=== PATIENT | male | born 1995 | race Caucasian/White ===

== ENCOUNTER 2022-01-14 05:07 | Emergency (ER) | payer SELFPAY ==
[2022-01-14 05:09] VITALS: BP 131/89; PULSE 75; RESP 16; TEMP 37; O2SAT 100
[2022-01-14] MEDS: SODIUM CHLORIDE 0.9% IV 1,000 ML 999 ML IV CONT (06:24)
[2022-01-14] MEDS: ONDANSETRON INJ 4 MG/2 ML VIAL IV PUSH (06:25)
[2022-01-14 06:27] VITALS: BP 111/82; PULSE 65; RESP 16; O2SAT 97
[2022-01-14 06:29] LABS: Basophils Absolute Auto 0.1 K/mm3 (0.0-0.1); Basophils Percent Auto 0.8 % (0.2-1.2); Eosinophils Absolute Auto 0.1 K/mm3 (0-0.3); Eosinophils Percent Auto 1.3 % (0-4.4); Hematocrit 44.8 % (42.0-52.0); Hemoglobin 15.4 g/dL (14.0-18.0); Immature Granulocyte Absolute 0.01 K/mm3 (0.00-0.031); Immature Granulocyte Percent A 0.2 % (0-0.5); Lymphocytes Absolute Auto 2.19 K/mm3 (0.9-3.2); Lymphocytes Percent Auto 34.7 % (18.3-44.2); Mean Corpuscular HGB Conc 34.4 g/dl (32-36); Mean Corpuscular Hemoglobin 30.1 pg (26-34); Mean Corpuscular Volume 87.5 fl (80-100); Mean Platelet Volume 9.4 fl (7.4-10.4); Monocytes Absolute Auto 0.6 K/mm3 (0.1-0.6); Monocytes Percent Auto 9.4 % (2.6-8.5); Neutrophils Absolute Auto 3.4 K/mm3 (1.3-6.7); Neutrophils Percent Auto 53.6 % (45.5-73.1); Platelet Count Result 269 k/mm3 (150-375); Red Blood Count 5.12 M/mm3 (4.6-6.20); Red Cell Distribution Width 12.1 % (11.5-14.5); White Blood Count 6.3 K/mm3 (4.5-10.0)
[2022-01-14 06:37] LABS: Alanine Aminotransferase 15 U/L (4-50); Albumin Level 4.5 g/dL (3.5-5.1); Alkaline Phosphatase 77 U/L (38-126); Anion Gap 11 mmol/L (8-16); Aspartate Amino Transferase 23 U/L (17-59); Bilirubin,Total 0.5 mg/dL (0.2-1.3); Blood Urea Nitrogen 14 mg/dL (9-20); Calcium 8.8 mg/dL (8.4-10.2); Carbon Dioxide 26 mmol/L (22-30); Chloride 103 mmol/L (98-107); Estimated CRCL calculation 121 ml/min; Estimated Glomerular Filt Rate > 60; Glucose 92 mg/dL (65-110); Lipase 157 U/L (23-300); Potassium 3.9 mmol/L (3.4-5.0); Sodium 140 mmol/L (137-145)
--- NOTE | 2022-01-14 07:19 | ED.GENADULT ---
HPI - General Adult General Chief complaint: Nausea/Vomiting/Diarrhea Stated complaint: vomiting blood Time Seen by Provider: 01/14/22 05:34 History of Present Illness HPI narrative: Patient is a 26-year-old male who presents ER with nausea and vomiting. Ongoing over the last 2 days. No specks of blood in his emesis. No dark black stools. No diarrhea. Mild epigastric discomfort without radiation, pain is worsened by drinking wine and smoking cigarettes. No known sick contacts. Denies fevers or chills or sweats. No dizziness with sitting to standing. No syncope. Related Data Allergies Allergy/AdvReac Type Severity Reaction Status Date / Time No Known Allergies Allergy Verified 01/14/22 05:44 Review of Systems Review of Systems: All systems reviewed & are unremarkable except as noted in HPI and below Constitutional: Constitutional: Denies chills, Denies fever(s) and Denies weakness ENT: Denies nasal congestion and Denies sore throat Cardiovascular: Cardiovascular: Denies chest pain, Denies rapid heart rate and Denies radiating jaw, neck or arm pain Respiratory: Respiratory: Denies cough and Denies dyspnea Gastrointestinal: Gastrointestinal: Reports abdominal pain, Denies diarrhea, Reports nausea and Reports vomiting PMFSH Past Medical History Medical History (Updated 01/14/22 @ 07:24 by Tien Matias MD) Healthy adult male Surgical History Surgical History (Updated 01/14/22 @ 07:22 by Tien Matias MD) No history of previous surgery Social History Social History (Updated 01/14/22 @ 07:22 by Tien Matias MD) Smoking status: Current every day smoker Exam Narrative: GENERAL: Well-appearing, well-nourished, and in no acute distress. HEAD: Normocephalic, atraumatic. ENT: Mucous membranes moist. CHEST: Clear to auscultation. No respiratory distress. HEART: Regular rate and rhythm. Normal peripheral pulses. ABDOMEN: Soft, nontender, nondistended, normal active bowel sounds. EXTREMITIES: Normal range of motion. No edema. SKIN: Warm, dry, no rash. NEURO: Alert and oriented x3. PSYCH: Normal mood and affect. Course Course Emergency Course: Patient resting comfortably. Informed results. Will treat for gastritis. Discharge home. Vital Signs Vital signs: Vital Signs Temperature 98.6 F 01/14/22 05:09 Pulse Rate 75 01/14/22 05:09 Respiratory Rate 16 01/14/22 05:09 Blood Pressure 131/89 01/14/22 05:09 Pulse Oximetry 100 01/14/22 05:09 Temperature 98.6 F 01/14/22 05:09 Pulse Rate 65 01/14/22 06:27 Respiratory Rate 16 01/14/22 06:27 Blood Pressure 111/82 01/14/22 06:27 Pulse Oximetry 97 01/14/22 06:27 Medical Decision Making Vital Signs Vital Signs: Vital Signs Temperature 98.6 F 01/14/22 05:09 Pulse Rate 75 01/14/22 05:09 Respiratory Rate 16 01/14/22 05:09 Blood Pressure 131/89 01/14/22 05:09 Pulse Oximetry 100 01/14/22 05:09 Temperature 98.6 F 01/14/22 05:09 Pulse Rate 65 01/14/22 06:27 Respiratory Rate 16 01/14/22 06:27 Blood Pressure 111/82 01/14/22 06:27 Pulse Oximetry 97 01/14/22 06:27 Lab Data Result diagrams: 01/14/22 06:14 01/14/22 06:15 Labs: Lab Results 01/14/22 01/14/22 Range/Units 06:14 06:15 WBC 6.3 (4.5-10.0) K/mm3 RBC 5.12 (4.6-6.20) M/mm3 Hgb 15.4 (14.0-18.0) g/dL Hct 44.8 (42.0-52.0) % MCV 87.5 (80-100) fl MCH 30.1 (26-34) pg MCHC 34.4 (32-36) g/dl RDW 12.1 (11.5-14.5) % Plt Count 269 (150-375) k/mm3 MPV 9.4 (7.4-10.4) fl Immature Gran % (Auto) 0.2 (0-0.5) % Neut % (Auto) 53.6 (45.5-73.1) % Lymph % (Auto) 34.7 (18.3-44.2) % [place] % (Auto) 9.4 H (2.6-8.5) % Eos % (Auto) 1.3 (0-4.4) % Baso % (Auto) 0.8 (0.2-1.2) % Lymph # (Auto) 2.19 (0.9-3.2) K/mm3 [place] # (Auto) 0.6 (0.1-0.6) K/mm3 Eos # (Auto) 0.1 (0-0.3) K/mm3 Baso # (Auto) 0.1 (0.0-0.1) K/mm3 Abs Immat G
[2022-01-14 07:20] VITALS: BP 111/83; O2SAT 98
--- NOTE | 2022-01-14 07:20 | PC.NURSE ---
Patient report received from Cecilio FIELDS. All questions answered and care of patient assumed.
[2022-01-14 07:51] VITALS: BP 104/81; PULSE 71; RESP 18; O2SAT 99
== END 2022-01-14 07:54 | disposition home or self-care (01) ==
PROVIDERS: Emergency Provider Emergency Medicine
DX: K29.70 Gastritis, unspecified, without bleeding (principal); F17.200 Nicotine dependence, unspecified, uncomplicated
CPT/HCPCS: 36415; 80053; 83690; 85025; 96361; 96374; 99284; J2405; J7030

== ENCOUNTER 2022-03-03 15:55 | Emergency (ER) | payer SELFPAY ==
--- NOTE | 2022-03-03 16:01 | ED.URI ---
HPI - URI/Sore Throat General Chief Complaint: Upper Respiratory Infection Stated Complaint: SORE THROAT/FEVER Time Seen by Provider: 03/03/22 16:01 Source: patient and RN notes reviewed Mode of arrival: ambulatory Limitations: no limitations History of Present Illness HPI Narrative: 26-year-old male presented for complaint of sore throat. Also endorses fever and headache yesterday. He denies nausea, vomiting, diarrhea, cough or shortness of breath. He has not taken anything for symptoms. He is not vaccinated for flu, not boosted for COVID. Denies sick contacts. MD elicited complaint: cough Related Data Allergies Allergy/AdvReac Type Severity Reaction Status Date / Time No Known Allergies Allergy Verified 03/03/22 16:04 Review of Systems Review of Systems: CONSTITUTIONAL: Denies malaise EYES: Denies visual changes, redness, or discharge ENT: Reports rhinorrhea, sore throat CARDIOVASCULAR: Denies chest pain, palpitations, edema RESPIRATORY: Denies dyspnea GASTROINTESTINAL: Denies abdominal pain, nausea, vomiting, diarrhea SKIN: Denies rash or itching MUSCULOSKELETAL: Denies myalgia NEUROLOGIC: Denies headache PMFSH Past Medical History Medical History Healthy adult male Surgical History Surgical History No history of previous surgery Social History Social History Smoking status: Current every day smoker Exam Narrative: GENERAL: Well-appearing HEAD: Normocephalic EYES: conjunctivae clear ENT: Mucous membranes moist. TM pearly vila with normal light reflex bilaterally; no tragal tenderness. Oropharynx erythematous without lesions or exudate, tongue is pale in color with approx 3mm circular area at distal aspect, he states he burned it on cough yesterday. No drooling, no hoarseness, no trismus, uvula midline. No tripod positioning, muffled voice, soft palate or pharyngeal wall bulging NECK: Supple. No lymphadenopathy CHEST: Clear to auscultation, breath sounds equal. No wheezing, rhonchi, rales, or stridor. No respiratory distress, speaks in full sentences. HEART: Regular rate and rhythm. No murmur heard. SKIN: Warm, dry, no rash. NEURO: Alert and oriented x3. PSYCH: Normal mood and affect Course Course Emergency Course: Patient is aware of diagnosis, understands and agrees to treatment plan. Anticipatory guidance given. Patient agrees to follow-up as directed and is aware of reasons to seek care at the emergency department. Portions of this record may have been created with voice recognition software Level of Care: Express Care Visit Vital Signs Vital signs: Vital Signs Temperature 97.5 F L 03/03/22 16:07 Pulse Rate 76 03/03/22 16:07 Respiratory Rate 16 03/03/22 16:07 Blood Pressure 114/73 03/03/22 16:07 Pulse Oximetry 99 03/03/22 16:07 Temperature 97.5 F L 03/03/22 16:07 Pulse Rate 76 03/03/22 16:07 Respiratory Rate 16 03/03/22 16:07 Blood Pressure 114/73 03/03/22 16:07 Pulse Oximetry 99 03/03/22 16:07 reviewed MDM - URI/Sore Throat MDM Narrative Medical decision making narrative: strep and COVID neg. He is advised on supportive treatment. He is appropriate for outpatient treatment and follow-up. Differential Diagnosis Differential diagnosis: Likely upper respiratory infection, sinusitis and viral infection Lab Data Attestation: I reviewed the patient's lab results. Labs: Lab Results 03/03/22 Range/Units 16:01 POC SARS CoV-2 Ag Negative (Negative) Strep Screen Presumptive Negative *(Reference Range: Negative)* Discharge Plan Discharge Clinical Impression: Pharyngitis Qualifiers: Pharyngitis/tonsillitis etiology: unspecified etiology Qualified Code(s): J02.9 - Acute pharyngitis, unspecified Patient Disposi
[2022-03-03 16:07] VITALS: BP 114/73; PULSE 76; RESP 16; TEMP 36.4; O2SAT 99
== END 2022-03-03 16:40 | disposition home or self-care (01) ==
PROVIDERS: Emergency Provider Nurse Practitioner Family
DX: J02.9 Acute pharyngitis, unspecified (principal); Z20.822 Contact with and (suspected) exposure to COVID-19
CPT/HCPCS: 87081; 87426; 87880; 99213; C9803; G0463

== ENCOUNTER 2022-04-03 18:13 | Emergency (ER) | payer SELFPAY ==
--- NOTE | 2022-04-03 18:14 | ED.URI ---
HPI - URI/Sore Throat General Chief Complaint: Dizziness Stated Complaint: heat injury Time Seen by Provider: 04/03/22 18:14 Source: patient Mode of arrival: ambulatory Limitations: no limitations History of Present Illness HPI Narrative: Mr. Lund is a 26-year-old male patient presenting to the clinic today with complaints of possible heat exhaustion. 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 He felt like he got overheated. States that he was sweating a lot, body aches, stomach cramping, having nausea, dizziness, and decreased urination. He has been in bed most of the day. He has only voided a total of 3-4 times in the last 24 hours. He states that some of the dizziness and nausea has improved since sleeping however he does not feel 100% currently. He denies any fever or chills. He denies any known exposure to anybody with COVID, flu, or strep. Related Data Allergies Allergy/AdvReac Type Severity Reaction Status Date / Time No Known Allergies Allergy Verified 04/03/22 18:23 Review of Systems Review of Systems: Pertinent positives per HPI. Patient denies any fever, chills, rash, headache, visual changes, cough, runny nose, sore throat, shortness of breath, chest pain, palpitations, vomiting, diarrhea, constipation, abdominal pain, or any urinary issues. PMFSH Past Medical History Medical History Healthy adult male Surgical History Surgical History No history of previous surgery Social History Social History Smoking status: Current every day smoker Comments At the time of my signature, I reviewed and agree with the nursing past medical, surgical, social, and family history. There is no relevant family history pertinent to the patient complaint. Exam Narrative: General: Well-developed, well nourished, in no apparent distress Head: Normocephalic, atraumatic Eyes: Pupils equally round and reactive to light bilaterally, EOM intact, sclera and conjunctive clear, no discharge, lids normal Ears: TMs intact and clear, ear canals clear, no drainage, grossly hearing normal. Nose: Nares patent, no discharge, no inflammation, no sinus tenderness. Mouth: Oropharynx without lesions or masses, good dentition, MMM. Neck: Supple, trachea midline, no enlargement of anterior or posterior cervical nodes, no thyroid masses or goiter palpable. Cardio: Regular rate and rhythm, s1 and s2 normal, no murmur appreciated. Resp: Clear to auscultation bilaterally anteriorly and posteriorly, no rhonchi, rales, wheezing or rubs Abdomen: Soft, pliable, generalized tenderness to palpation, no CVAT tenderness, no organomegaly, bowel sounds present all 4 quadrants Course Course Emergency Course: Portions of this record may have been created with voice recognition software. Level of Care: Express Care Visit Vital Signs Vital signs: Vital signs reviewed MDM - URI/Sore Throat MDM Narrative Medical decision making narrative: At the time of visit patient is resting comfortably on exam table. UA shows 1+ ketones however specific gravity is 1.025 and there is no protein in his urine. Not suspicious of rhabdomyolysis. He reports that his symptoms are improving however he still has some dizzy days and nausea at this time and has been trying to rehydrate. I suspect that the patient has heat exhaustion that is causing his dizziness and nausea. His vital signs are all within normal limits in the clinic today. I will give him a prescription for some Zofran and give him 2 days off and explained the importance of rehydration during working and also while at home. Supportive measures were discussed with the patient he voi
[2022-04-03 18:18] VITALS: BP 127/79; PULSE 87; RESP 18; TEMP 37.2; O2SAT 100
== END 2022-04-03 18:42 | disposition home or self-care (01) ==
LOC: EXPGLEN 18:16
PROVIDERS: Emergency Provider Nurse Practitioner Family
DX: R11.0 Nausea (principal); E86.0 Dehydration; T67.5XXA Heat exhaustion, unspecified, initial encounter; F17.200 Nicotine dependence, unspecified, uncomplicated
CPT/HCPCS: 81003; 99213; G0463

== ENCOUNTER 2023-12-22 22:31 | Emergency (ER) | payer SELFPAY ==
[2023-12-22 22:33] VITALS: BP 129/83; PULSE 81; RESP 16; TEMP 36.5; O2SAT 100
[2023-12-22 22:52] LABS: Basophils Percent Auto 0.5 % (0.2-1.2); Eosinophils Absolute Auto 0.1 K/mm3 (0-0.3); Eosinophils Percent Auto 0.7 % (0-4.4); Hematocrit 46.6 % (42.0-52.0); Hemoglobin 16.4 g/dL (14.0-18.0); Immature Granulocyte Absolute 0.01 K/mm3 (0.00-0.031); Immature Granulocyte Percent A 0.1 % (0-0.5); Lymphocytes Absolute Auto 2.62 K/mm3 (0.9-3.2); Lymphocytes Percent Auto 32.1 % (18.3-44.2); Mean Corpuscular HGB Conc 35.2 g/dl (32-36); Mean Corpuscular Hemoglobin 29.5 pg (26-34); Mean Platelet Volume 8.8 fl (7.4-10.4); Monocytes Absolute Auto 0.6 K/mm3 (0.1-0.6); Neutrophils Absolute Auto 4.9 K/mm3 (1.3-6.7); Neutrophils Percent Auto 59.6 % (45.5-73.1); Platelet Count Result 294 k/mm3 (150-375); Red Blood Count 5.55 M/mm3 (4.6-6.20); Red Cell Distribution Width 12.3 % (11.5-14.5); White Blood Count 8.2 K/mm3 (4.5-10.0)
[2023-12-22 23:02] LABS: Alanine Aminotransferase 70 U/L (6-50); Albumin Level 4.6 g/dL (3.5-5.1); Alkaline Phosphatase 85 U/L (38-126); Anion Gap 7 mmol/L (8-16); Aspartate Amino Transferase 75 U/L (17-59); Bilirubin,Total 0.5 mg/dL (0.2-1.3); Blood Urea Nitrogen 9 mg/dL (9-20); Calcium 9.4 mg/dL (8.4-10.2); Carbon Dioxide 27 mmol/L (22-30); Chloride 103 mmol/L (98-107); Estimated CRCL calculation 105 ml/min; Estimated Glomerular Filt Rate > 60; Glucose 92 mg/dL (65-110); Lipase 116 U/L (23-300); Potassium 4.3 mmol/L (3.4-5.0); Sodium 137 mmol/L (137-145)
[2023-12-22 23:08] LABS: Add Urine Microscopic? NO; Appearance Urine Clear (Clear); Bilirubin Urine Negative (Negative); Blood Urine Negative (Negative); Color Urine Yellow (Yellow); Glucose Urine UA Negative (Negative); Ketones Urine Negative (Negative); Leukocyte Esterase Ur Negative LEU/UL (Negative); Nitrate Urine Negative (Negative); Protein Urine Negative (Negative); Urobilinogen Urine 0.2 mg/dL (<2.0)
--- NOTE | 2023-12-22 23:17 | ED.GENADULT ---
HPI - General Adult General Chief complaint: Nausea/Vomiting/Diarrhea Stated complaint: nausea, vomiting Time Seen by Provider: 12/22/23 22:56 History of Present Illness HPI narrative: This is a 28 year old male presenting w/ 3 days of NVD. No URI symptoms chest pain breathing. He does have some crampy lower left abdominal pain. He has not taken anything for symptoms. He needs a work note to go back to work. Related Data Allergies Allergy/AdvReac Type Severity Reaction Status Date / Time No Known Allergies Allergy Verified 12/22/23 22:31 [facility] Past Medical History Medical History Healthy adult male Surgical History Surgical History No history of previous surgery Social History Social History Smoking status: Current every day smoker Exam Narrative: APPEARANCE: No apparent distress. Head: atraumatic. EYES: EOMI, NOSE: Atraumatic NECK: Trachea midline RESPIRATORY: No increased rate of breathing, CTAB CARDIOVASCULAR: RRR, ABDOMINAL: abdomen soft nontender no guarding rebound MUSCULOSKELETAl: No obvious deformities NEURO: Alert. Moving 4/4 extremities SKIN:: Warm, dry. Normal color PSYCHIATRIC: Normal affect Course Vital Signs Vital signs: Vital Signs Temperature 97.7 F 12/22/23 22:33 Pulse Rate 81 12/22/23 22:33 Respiratory Rate 16 12/22/23 22:33 Blood Pressure 129/83 12/22/23 22:33 Pulse Oximetry 100 12/22/23 22:33 Oxygen Delivery Room Air 12/22/23 22:33 Temperature 97.7 F 12/22/23 22:33 Pulse Rate 81 12/22/23 22:33 Respiratory Rate 16 12/22/23 22:33 Blood Pressure 129/83 12/22/23 22:33 Pulse Oximetry 100 12/22/23 22:33 Oxygen Delivery Room Air 12/22/23 22:33 Medical Decision Making MDM Narrative Medical decision making narrative: -Course: 28-year-old male presenting 3 days of GI symptoms. Laboratory studies normal. Vital signs stable. Patient discharged with the requested work note and symptomatic treatment. Given return precautions. -DDX includes but is not limited to: Gastroenteritis, viral illness -Independent interpretation of studies: CBC normal metabolic panel normal, UA normal -Shared decision making / Disposition: discharge -RX Imodium Zofran Vital Signs Vital Signs: Vital Signs Temperature 97.7 F 12/22/23 22:33 Pulse Rate 81 12/22/23 22:33 Respiratory Rate 16 12/22/23 22:33 Blood Pressure 129/83 12/22/23 22:33 Pulse Oximetry 100 12/22/23 22:33 Oxygen Delivery Room Air 12/22/23 22:33 Temperature 97.7 F 12/22/23 22:33 Pulse Rate 81 12/22/23 22:33 Respiratory Rate 16 12/22/23 22:33 Blood Pressure 129/83 12/22/23 22:33 Pulse Oximetry 100 12/22/23 22:33 Oxygen Delivery Room Air 12/22/23 22:33 Lab Data 12/22/23 22:45 12/22/23 22:45 Labs: Lab Results 12/22/23 12/22/23 Range/Units 22:45 22:59 WBC 8.2 (4.5-10.0) K/mm3 RBC 5.55 (4.6-6.20) M/mm3 Hgb 16.4 (14.0-18.0) g/dL Hct 46.6 (42.0-52.0) % MCV 84.0 (80-100) fl MCH 29.5 (26-34) pg MCHC 35.2 (32-36) g/dl RDW 12.3 (11.5-14.5) % Plt Count 294 (150-375) k/mm3 MPV 8.8 (7.4-10.4) fl Immature Gran % (Auto) 0.1 (0-0.5) % Neut % (Auto) 59.6 (45.5-73.1) % Lymph % (Auto) 32.1 (18.3-44.2) % [place] % (Auto) 7.0 (2.6-8.5) % Eos % (Auto) 0.7 (0-4.4) % Baso % (Auto) 0.5 (0.2-1.2) % Lymph # (Auto) 2.62 (0.9-3.2) K/mm3 [place] # (Auto) 0.6 (0.1-0.6) K/mm3 Eos # (Auto) 0.1 (0-0.3) K/mm3 Baso # (Auto) 0.0 (0.0-0.1) K/mm3 Abs Immat Gran (auto) 0.01 (0.00-0.031) K/mm3 Absolute Neuts (auto) 4.9 (1.3-6.7) K/mm3 Absolute Nucleated RBC 0.0 (0.0-0.012) K/mm3 Nucleated RBC % 0.0 (0.0-0.2) % Sodium 137 (137-145) mmol/L Potassium 4.3 (3.4-5.0) mmol/L
[2023-12-22 23:43] LABS: Influenza A QL RT-PCR Negative (Negative); Influenza B QL RT-PCR Negative (Negative); RSV RNA, RT-PCR Negative (Negative); SARS-CoV-2 RNA PCR Negative (Negative)
== END 2023-12-22 23:56 | disposition home or self-care (01) ==
PROVIDERS: Emergency Provider Emergency Medicine
DX: K52.9 Noninfective gastroenteritis and colitis, unspecified (principal); F17.200 Nicotine dependence, unspecified, uncomplicated; Z20.822 Contact with and (suspected) exposure to COVID-19
CPT/HCPCS: 36415; 80053; 81003; 83690; 85025; 87637; 99283

== ENCOUNTER 2024-04-04 16:55 | Emergency (ER) | payer SELFPAY ==
--- NOTE | ~2024-04-04 | CT_ITS ---
CT abdomen pelvis w con Ordering provider: Lisa Jeff PA-C History: . LLQ abd pain, flank pain . Comparison: None. Technique: CT abdomen with IV and without oral contrast. Radiation reduction technique utilized. DLP is 322.39. 100 mL Omnipaque 350 was given IV. Findings: VISUALIZED LOWER CHEST: Dependent atelectatic changes. UPPER ABDOMINAL ORGANS: Liver: Normal. Gallbladder: Normal. Spleen: Normal. Stomach/duodenum: Normal. Pancreas: Normal. Adrenals: Normal. Kidneys: Left 2 stones with the largest measures 4.1 mm stone. No hydronephrotic changes. Urinary bladder: Slightly thickened wall. VISUALIZED BOWEL AND MESENTERY: No evidence of diverticulitis. Normal appendix. The bowel is otherwis e normal. No free air or free fluid. No mesenteric lymphadenopathy. RETROPERITONEUM: Normal aorta. No retroperitoneal lymphadenopathy. MUSCULOSKELETAL: The superficial soft tissues are normal. Normal spine. IMPRESSION: No evidence of appendicitis, diverticulitis or intestinal obstruction. Stones in the left kidney. No hydronephrotic changes. Reviewed, dictated and finalized at location A.
[2024-04-04 17:19] VITALS: BP 120/87; PULSE 80; RESP 16; TEMP 36.4; O2SAT 100
--- NOTE | 2024-04-04 17:31 | ED.NAVMDI ---
HPI - Nausea/Vomiting/Diarrhea General Chief complaint: Nausea/Vomiting/Diarrhea <Jeferson Laureano PA-C - Last Filed: 04/04/24 17:37> Stated complaint: Nauseated, diarrhea, dizziness <Jeferson Laureano PA-C - Last Filed: 04/04/24 17:37> Time Seen by Provider: 04/04/24 17:31 <Jeferson Laureano PA-C - Last Filed: 04/04/24 17:37> Focused HPI: This is a 28-year-old male who presents to the ED for chief complaint of fatigue and diarrhea for the past couple of days. He is concerned for possible dehydration and heat exhaustion. He has been running around outside doing errands last couple of days. States he has had more than 5 episodes of diarrhea. Endorses 2 episodes of vomiting. Denies any known sick contacts. Endorses mild abdominal cramping. Denies fevers, chills, GI bleeding, urinary symptoms, chest pain, shortness of breath, cough. Denies illness or syncope GENERAL: Well-appearing, well-nourished, and in no acute distress. HEAD: Normocephalic, atraumatic. CHEST: Clear to auscultation. No respiratory distress. HEART: Regular rate and rhythm. NEURO: Alert and oriented x3. Patient screened in triage and initial orders placed. Additional care and disposition to be based upon diagnostic testing and treatment. <Jeferson Laureano PA-C - Last Filed: 04/04/24 17:37> Source: patient <Jeferson Laureano PA-C - Last Filed: 04/04/24 17:37> Mode of arrival: ambulatory <Jeferson Laureano PA-C - Last Filed: 04/04/24 17:37> Limitations: no limitations <LUIS Zepeda Last Filed: 04/04/24 17:37> History of Present Illness HPI Narrative: 28-year-old male presents to emergency department with concerns for dehydration and heat exhaustion. Patient states 3 days ago he was running errands without air conditioning in his car and since then has developed symptoms of dehydration. He is reporting a few episodes of orange and green diarrhea. States 3 nights ago he had an episode of nausea vomiting that has since resolved. He is reporting some lower abdominal pain and back pain. States he a history of a kidney stone. Denies dysuria or hematuria. States he felt warm a couple days ago but that has since resolved. Denies known fever. Requesting a doctor's note. <Lisa Jeff PA-C - Last Filed: 04/04/24 19:19> Related Data Allergies/Adverse reactions: Allergies Allergy/AdvReac Type Severity Reaction Status Date / Time No Known Allergies Allergy Verified 04/04/24 17:56 <Jeferson Laureano PA-C - Last Filed: 04/04/24 17:37> Review of Systems Review of Systems: CONSTITUTIONAL: Denies fever, chills, or sweats. EYES: Denies visual changes, redness, or discharge. ENT: Denies rhinorrhea, congestion, sore throat, or otalgia. CARDIOVASCULAR: Denies chest pain, palpitations, or edema. RESPIRATORY: Denies cough or dyspnea. GASTROINTESTINAL: See HPI GENITOURINARY: see HPI SKIN: Denies rash or itching. MUSCULOSKELETAL: Denies back pain, joint pain, or myalgia. NEUROLOGIC: Denies headache, numbness, or weakness. PSYCHIATRIC: Denies anxiety or depression. <Lisa Jeff PA-C - Last Filed: 04/04/24 19:19> PMFSH Past Medical History Medical History: Medical History Healthy adult male <Jeferson Laureano PA-C - Last Filed: 04/04/24 17:37> Surgical History Surgical History: Surgical History No history of previous surgery <Jeferson Laureano PA-C - Last Filed: 04/04/24 17:37> Social History Social History: Social History Smoking status: Current every day smoker <Jeferson Laureano PA-C - Last Filed: 04/04/24 17:37> Exam Narrative: GENERAL: Well-appearing, well-nourished, and in no acute distress. HEAD: Normocephalic, atraumatic. EYES: PERRLA and EOMI. ENT: Nares clear, no rhinorrhea or epistaxis. Mucous
[2024-04-04 17:44] LABS: Basophils Percent Auto 0.7 % (0.2-1.2); Eosinophils Absolute Auto 0.1 K/mm3 (0-0.3); Eosinophils Percent Auto 1.3 % (0-4.4); Hematocrit 45.7 % (42.0-52.0); Hemoglobin 15.9 g/dL (14.0-18.0); Immature Granulocyte Absolute 0.01 K/mm3 (0.00-0.031); Immature Granulocyte Percent A 0.2 % (0-0.5); Lymphocytes Absolute Auto 1.86 K/mm3 (0.9-3.2); Lymphocytes Percent Auto 34.4 % (18.3-44.2); Mean Corpuscular HGB Conc 34.8 g/dl (32-36); Mean Corpuscular Hemoglobin 29.6 pg (26-34); Mean Corpuscular Volume 84.9 fl (80-100); Monocytes Absolute Auto 0.3 K/mm3 (0.1-0.6); Monocytes Percent Auto 6.3 % (2.6-8.5); Neutrophils Absolute Auto 3.1 K/mm3 (1.3-6.7); Neutrophils Percent Auto 57.1 % (45.5-73.1); Platelet Count Result 243 k/mm3 (150-375); Red Blood Count 5.38 M/mm3 (4.6-6.20); Red Cell Distribution Width 12.4 % (11.5-14.5); White Blood Count 5.4 K/mm3 (4.5-10.0)
[2024-04-04 17:54] LABS: Alanine Aminotransferase 43 U/L (6-50); Albumin Level 4.6 g/dL (3.5-5.1); Alkaline Phosphatase 76 U/L (38-126); Anion Gap 12 mmol/L (4-12); Aspartate Amino Transferase 34 U/L (17-59); Bilirubin,Total 0.7 mg/dL (0.2-1.3); Blood Urea Nitrogen 10 mg/dL (9-20); Carbon Dioxide 23 mmol/L (22-30); Chloride 103 mmol/L (98-107); Estimated CRCL calculation 105 ml/min; Estimated Glomerular Filt Rate > 60; Glucose 161 mg/dL (65-110); Lipase 128 U/L (23-300); Potassium 3.9 mmol/L (3.4-5.0); Sodium 138 mmol/L (137-145)
[2024-04-04 17:58] LABS: Appearance Urine Clear (Clear); Bilirubin Urine Negative (Negative); Blood Urine Negative (Negative); Color Urine Yellow (Yellow); Glucose Urine UA Negative (Negative); Ketones Urine Negative (Negative); Leukocyte Esterase Ur Negative LEU/UL (Negative); Nitrate Urine Negative (Negative); Protein Urine Negative (Negative); pH Urine 6.5 (5.0-9.0)
[2024-04-04 18:00] LABS: Add Urine Microscopic? NO
[2024-04-04] MEDS: SODIUM CHLORIDE 0.9% IV 1,000 ML 999 ML IV CONT (18:41)
== END 2024-04-04 19:44 | disposition home or self-care (01) ==
PROVIDERS: Physician Assistant; Emergency Provider Physician Assistant
DX: K52.9 Noninfective gastroenteritis and colitis, unspecified (principal)
CPT/HCPCS: 36415; 74177; 80048; 80076; 81003; 83690; 85025; 96360; 99284; J7030; Q9967

== ENCOUNTER 2024-05-21 16:44 | Emergency (ER) | payer SELFPAY ==
--- NOTE | ~2024-05-21 | XR_ITS ---
XR chest 2V Ordering provider: Héctor Bradley MD History: 28 years Male with . uri . Comparison: December 16, 2012 FINDINGS: MEDIASTINUM: The cardiac silhouette is not enlarged. LUNGS: No infiltrates, effusions or pneumothorax. OTHER: No free air under the diaphragm. IMPRESSION: No acute cardiopulmonary pathology. Reviewed, dictated and finalized at location A.
[2024-05-21 16:59] VITALS: BP 127/77; PULSE 82; RESP 18; TEMP 36.7; O2SAT 99
[2024-05-21 19:15] LABS: Influenza A QL RT-PCR Negative (Negative); Influenza B QL RT-PCR Negative (Negative); RSV RNA, RT-PCR Negative (Negative); SARS-CoV-2 RNA PCR Negative (Negative)
--- NOTE | 2024-05-21 19:44 | ED.GENADULT ---
HPI - General Adult General Chief complaint: Upper Respiratory Infection Stated complaint: body aches, nausea Time Seen by Provider: 05/21/24 19:38 History of Present Illness HPI narrative: Patient 28-year-old gentleman who presents emergency department with chief complaint of cough fevers body aches and nausea. Patient reports been on for several days states today that he was at work felt bad and they recommended that he be seen patient states that is concerning may have COVID or flu for pneumonia Related Data Allergies Allergy/AdvReac Type Severity Reaction Status Date / Time No Known Allergies Allergy Verified 05/21/24 16:44 Review of Systems Review of Systems: A 10 system review of systems was completed on the patient and is negative except for what is stated in the HPI. Nursing and ancillary documentation was reviewed. [facility] Past Medical History Medical History Healthy adult male Surgical History Surgical History No history of previous surgery Social History Social History Smoking status: Current every day smoker Exam Narrative: GENERAL: Well-appearing, well-nourished, and in no acute distress. HEAD: Normocephalic, atraumatic. EYES: PERRLA and EOMI. ENT: Nares clear, no rhinorrhea or epistaxis. Mucous membranes moist. NECK: Supple. CHEST: Clear to auscultation. No respiratory distress. HEART: Regular rate and rhythm. No murmur heard. Normal peripheral pulses. ABDOMEN: Soft, nontender, nondistended, normal active bowel sounds. EXTREMITIES: Normal range of motion. No edema. SKIN: Warm, dry, no rash. NEURO: No focal deficits. Alert and oriented x3. PSYCH: Normal mood and affect. Course Vital Signs Vital signs: Vital Signs Temperature 36.7 C 05/21/24 16:59 Pulse Rate 82 05/21/24 16:59 Respiratory Rate 18 05/21/24 16:59 Blood Pressure 127/77 05/21/24 16:59 Pulse Oximetry 99 05/21/24 16:59 Temperature 36.7 C 05/21/24 16:59 Pulse Rate 82 08/07/24 16:59 Respiratory Rate 18 05/21/24 16:59 Blood Pressure 127/77 05/21/24 16:59 Pulse Oximetry 99 05/21/24 16:59 Medical Decision Making [facility] Narrative Medical decision making narrative: Differential diagnosis viral illness, pneumonia, COVID, flu, RSV Chest x-ray showed no focal infiltrates COVID flu and RSV were negative Patient is nontoxic home there is no acute distress. The patient was instructed to hydrate take Tylenol and ibuprofen body aches and fevers and follow up with his primary care provider return to the emergency department if symptoms worsen Vital Signs Vital Signs: Vital Signs Temperature 36.7 C 05/21/24 16:59 Pulse Rate 82 05/21/24 16:59 Respiratory Rate 18 05/21/24 16:59 Blood Pressure 127/77 05/21/24 16:59 Pulse Oximetry 99 05/21/24 16:59 Temperature 36.7 C 05/21/24 16:59 Pulse Rate 82 05/21/24 16:59 Respiratory Rate 18 05/21/24 16:59 Blood Pressure 127/77 05/21/24 16:59 Pulse Oximetry 99 05/21/24 16:59 Lab Data Labs: Lab Results 05/21/24 Range/Units 18:21 Influenza A (RT-PCR) Negative (Negative) Influenza B (RT-PCR) Negative (Negative) RSV (RT-PCR) Negative (Negative) SARS-CoV-2 RNA (RT-PCR) Negative (Negative) Discharge Plan Discharge Clinical Impression: Upper respiratory infection Patient Disposition: Home, Self-Care Condition: Stable Instructions: Antibiotic Form, Upper Respiratory Infection (ED) Prescriptions: No Action ondansetron 4 mg tablet,disintegrating 4 mg PO Q6H PRN (Reason: nausea and vomiting) 3 Days Qty: 12 0RF loperamide [Anti-Diarrheal (loperamide)] 2 mg capsule 2 mg PO Q6H PRN (Reason: loose stool) Qty: 30 0RF ondansetron 4 mg tablet,disintegrating 4 mg PO Q
[2024-05-21 20:05] VITALS: TEMP 37.1
== END 2024-05-21 20:06 | disposition home or self-care (01) ==
LOC: ANHED 19:57
PROVIDERS: Emergency Medicine; Emergency Provider Emergency Medicine
DX: J06.9 Acute upper respiratory infection, unspecified (principal); Z20.822 Contact with and (suspected) exposure to COVID-19
CPT/HCPCS: 71046; 87637; 99283